=== PATIENT | female | born 1995 ===

== ENCOUNTER 2017-07-20 21:35 | Emergency (ER) | payer SELFPAY ==
[~2017-07-20] VITALS: Ht 157.5 cm; Wt 102.3 kg
[2017-07-20 21:43] VITALS: Ht 157.5 cm; Wt 102.3 kg
== END 2017-07-20 23:04 | disposition left against medical advice (07) ==
LOC: E/R 21:35
DX: Z53.21 Procedure and treatment not carried out due to patient leaving prior to being seen by health care provider (principal)